=== PATIENT | female | born 1955 | race Caucasian/White ===

== ENCOUNTER 2018-04-27 15:05 | Inpatient (IN) | payer MEDICARE, MEDICAID ==
[2018-04-27 17:20] VITALS: BMI 22.8
[2018-04-27] MEDS ORDERED: Magnesium Hydroxide Susp 30 ml UD PO PRN (19:25)
[2018-04-27] MEDS ORDERED: Alum-Mag Hydrox-Simethicone Susp (30 mL) PO PRN (19:25)
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
[2018-04-28 06:58] LABS: HEMOGLOBIN 14.2 g/dL (12.0-16.0); MEAN CELL VOLUME 101.6 fl (81.0-99.0); MEAN CORPUSCULAR HEMOGLOBIN 34.3 pg (27.0-31.0); MEAN CORPUSCULAR HGB CONC 33.7 g/dL (33.0-37.0); RBC 4.15 Mil/uL (3.80-5.20); RED CELL DISTRIBUTION WIDTH 13.8 % (11.5-14.5); WHITE BLOOD COUNT 5.6 K/uL (4.8-10.8)
[2018-04-28 07:25] LABS: ALB/GLOB RATIO 1.4 (1.0-2.1); ALBUMIN 4.2 g/dL (3.5-5.0); ALT/SGPT 21 U/L (9-52); AST/SGOT 20 U/L (14-36); BLOOD UREA NITROGEN 15 mg/dl (7-17); CALCIUM 9.3 mg/dL (8.4-10.2); GFR NON-AFRICAN AMERICAN > 60; HDL CHOLESTEROL 58 MG/DL (30-70)
[2018-04-28 07:31] LABS: T4 7.48 ug/dl (5.5-11.0)
[2018-04-28 07:36] LABS: LDL CHOLESTEROL 62 mg/dL (0-129)
[2018-04-28] MEDS: Divalproex 500 mg DR(BID formulation) PO SCH ×2 (08:25→17:09)
--- NOTE | 2018-04-28 12:42 | PCM.PSYCH ---
Initial Psychiatric Evaluation - Initial Psychiatric Evaluation Chief Complaint (in patient's own words): I know the staff and other patients are against me History of Present Illness and Precipitating Events: pt is 62ys old female with previous psychiatric diagnosis of schizoaffective disorder [facility] after suicidal gesture attempting to cut her wrist using a spoon, pt presenting with paranoid delusions, reporting that the staff members and other patients in the [facility] are after her , mocking her and talking about her, she also has not heard from her brother who is her only social support for a long time , patient since then has been increasingly depressed feeling hopeless and helpless, on day of admission attempted suicide by cutting her wrist on the unit pt continues to verbalize paranoid delusions, reported feeling down, denied active thoughts of self harm on the unit denied perceptual disturbances Current Medications: Active Medications Generic Name Dose Route Start Last Admin Trade Name Freq PRN Reason Stop Dose Admin Acetaminophen 650 mg 04/27/18 19:25 Tylenol 325mg Tab PO Q4 PRN Pain, moderate (4-7) Al Hydrox/Mg Hydrox/Simethicone 30 ml 04/27/18 19:25 Maalox Plus 30 Ml PO Q4 PRN Dyspepsia Cephalexin Monohydrate 500 mg 04/27/18 22:00 04/28/18 08:25 Keflex PO 500 mg QID ANDREY Administration Protocol Divalproex Sodium 500 mg 04/28/18 09:00 04/28/18 08:25 Depnatalie Hartman(*Bid*) PO 500 mg BID ANDREY Administration Lorazepam 0.5 mg 04/27/18 19:25 Ativan PO 05/11/18 19:26 Q6 PRN Anixety/Agitation Magnesium Hydroxide 30 ml 04/27/18 19:25 Milk Of Magnesia PO HS PRN Constipation Mirtazapine 15 mg 04/28/18 22:00 Remeron PO HS ANDREY Risperidone 3 mg 04/27/18 22:00 04/28/18 08:25 Risperdal Tab PO 3 mg BID ANDREY Administration Past Psychiatric History - Past Psychiatric History Prior Psychiatric Treatment: first hospitalization at age 21 since then at least five psychiatric hospit Pertinent Medical Hx (Current Medical&Sleep Prob, Allergies): Allergies Allergy/AdvReac Type Severity Reaction Status Date / Time EGG Allergy Unknown ITCHING Verified 04/27/18 18:52 Influenza Virus Vaccines Allergy ITCHING Verified 04/27/18 18:52 Cephalexin [cephalexin] 500 mg PO QID 04/27/18 Divalproex [Depakote DR] 500 mg PO BID 04/27/18 Famotidine [Pepcid] 20 mg PO DAILY 04/27/18 Folic Acid 1 mg PO DAILY 04/27/18 Mirtazapine [Remeron] 7.5 mg PO HS 04/27/18 Multivitamins [Hexavitamin] 1 tab PO DAILY 04/27/18 Polyethylene Glycol 3350 [Glycolax] 17 gm PO BID 04/27/18 Risperidone [Risperdal] 3 mg PO BID 04/27/18 Sennosides [Senokot] 1 tab PO BID 04/27/18 Mental Status Examination - Personal Presentation Personal Presentation: Looks stated age - Affect Affect: Constricted, Depressed - Motor Activity Motor Activity: Psychomotor Retardation - Reliability in Providing Information Reliability in Providing Information: Fair - Speech Speech: Relevant - Mood Mood: Depressed, Anxious - Formal Thought Process Formal Thought Process: Paranoia - Obsessions/Compulsions Obsessions: No Compulsions: No - Cognitive Functions Orientation: Person, Place, Situation Sensorium: Alert Attention/Concentration: Attentive - Risk Risk: Suicidal, Self-mutilation, Diminished functioning - Strength & Assets Inventory Strength & Assets Inventory: Life experience - Limitations Additional comments: poor social support DSM 5 DX - DSM 5 DSM 5 Diagnosis: schizophrenia paranoid type - Recommended/Plan of Treatment Treatment Recommendations and Plan of Treatment: continue with depakote 500mg bid/ follow up on depakote level risperidone 3mg bid remeron 15mg qhs urology consult/ for cystitis /uti internal medicine consult
[2018-04-28 13:18] LABS: SQUAMOUS EPITHIAL < 1 /hpf (0-5); URINE AMORPHOUS SEDIMENT RARE /ul (<OCC); URINE BILIRUBIN NEGATIVE (NEGATIVE); URINE BLOOD MODERATE (NEGATIVE); URINE CLARITY CLOUDY (Clear); URINE COLOR YELLOW (YELLOW); URINE GLUCOSE (UA) NEG (NEGATIVE); URINE LEUKOCYTE ESTERASE LARGE Leu/uL (Negative); URINE PROTEIN NEGATIVE (NEGATIVE); URINE UROBILINOGEN 0.2-1.0 mg/dL (0.2-1.0)
[2018-04-28 13:29] LABS: URINE BACTERIA LARGE (<OCC)
--- NOTE | 2018-04-28 15:16 | CP.PCM.CON ---
History of Present Illness - History of Present Illness History of Present Illness: 62 yo female with history of schizoaffective DO admitted to [facility] because of suicidal ideation. Review of Systems - Review of Systems All systems: reviewed and no additional remarkable complaints except (aside from those mentioned above, 12 point system review were negative by me) Past Patient History - Tetanus Immunizations Tetanus Immunization: Unknown - Past Social History Smoking Status: Light Smoker < 10 Cigarettes Daily Chewing Tobacco Use: No Cigar Use: No Alcohol: None Drugs: Denies Home Situation {Lives}: Intermediate - CARDIAC Hx Cardiac Disorders: No - PULMONARY Hx Respiratory Disorders: No - NEUROLOGICAL Hx Neurological Disorder: No - HEENT Hx HEENT Problems: No - RENAL Hx Chronic Kidney Disease: No - ENDOCRINE/METABOLIC Hx Endocrine Disorders: No - HEMATOLOGICAL/ONCOLOGICAL Hx Blood Disorders: No - INTEGUMENTARY Hx Dermatological Problems: No - MUSCULOSKELETAL/RHEUMATOLOGICAL Hx Arthritis: Yes Hx Falls: Yes Hx Fractures: Yes (rt hip) - GASTROINTESTINAL Hx Constipation: Yes Hx Gastritis: Yes - GENITOURINARY/GYNECOLOGICAL Hx Urinary Tract Infection: Yes Other/Comment: pt. has an indwelling catheter for urinary retention - PSYCHIATRIC Hx Depression: Yes Hx Substance Use: No - SURGICAL HISTORY Hx Musculoskeletal Surgery: Yes - ANESTHESIA Hx Anesthesia: Yes Hx Anesthesia Reactions: No Hx Malignant Hyperthermia: No Has any member of the family had a problem w/ anesthesia?: No Meds Allergies/Adverse Reactions: Allergies Allergy/AdvReac Type Severity Reaction Status Date / Time EGG Allergy Unknown ITCHING Verified 04/27/18 18:52 Influenza Virus Vaccines Allergy ITCHING Verified 04/27/18 18:52 - Medications Medications: Current Medications Acetaminophen (Tylenol 325mg Tab) 650 mg PO Q4 PRN PRN Reason: Pain, moderate (4-7) Last Admin: 04/28/18 12:17 Dose: 650 mg Al Hydrox/Mg Hydrox/Simethicone (Maalox Plus 30 Ml) 30 ml PO Q4 PRN PRN Reason: Dyspepsia Cephalexin Monohydrate (Keflex) 500 mg PO QID [facility]; Protocol Last Admin: 04/28/18 12:17 Dose: 500 mg Divalproex Sodium (Depakote Dr(*Bid*)) 500 mg PO BID [facility] Last Admin: 04/28/18 08:25 Dose: 500 mg Famotidine (Pepcid) 20 mg PO DAILY [facility] Folic Acid (Folic Acid) 1 mg PO DAILY [facility] Lorazepam (Ativan) 0.5 mg PO Q6 PRN PRN Reason: Anixety/Agitation Stop: 05/11/18 19:26 Magnesium Hydroxide (Milk Of Magnesia) 30 ml PO HS PRN PRN Reason: Constipation Mirtazapine (Remeron) 15 mg PO HS [facility] Risperidone (Risperdal Tab) 3 mg PO BID [facility] Last Admin: 04/28/18 08:25 Dose: 3 mg Sennosides (Senokot Tab) 1 mg PO BID [facility] Physical Exam - Constitutional Appears: No Acute Distress - Head Exam Head Exam: ATRAUMATIC - Eye Exam Eye Exam: absent: Scleral icterus - ENT Exam ENT Exam: Mucous Membranes Moist - Neck Exam Neck exam: Negative for: Meningismus - Respiratory Exam Respiratory Exam: absent: Rales, Rhonchi, Wheezes, Respiratory Distress - Cardiovascular Exam Cardiovascular Exam: REGULAR RHYTHM, +S1, +S2 - GI/Abdominal Exam GI & Abdominal Exam: Soft. absent: Tenderness - Rectal Exam Rectal Exam: Deferred - Extremities Exam Extremities exam: Negative for: calf tenderness, pedal edema - Back Exam Back exam: NORMAL INSPECTION - Neurological Exam Neurological exam: Alert, Oriented x3 - Psychiatric Exam Psychiatric exam: Normal Affect - Skin Skin Exam: Dry, Intact Results - Vital Signs Recent Vital Signs: Last Vital Signs Temp 98.2 F 04/28/18 05:26 Pulse 66 04/28/18 05:26 Resp 18 04/28/18 05:26 BP 130/80 04/28/18 05:26 Pulse Ox - Labs Result Diagrams: 04/28/18 05:30 04/28/18 05:30 Labs: Laboratory Results - last 24 hr 04/28/18 04/28/18 04/28/18 05:30 05:30 05:30 WBC 5.6 RBC 4.15 Hgb 14.2 Hct 42.1 MCV 101.6 H MCH 34.3 H MCHC 33.7 RDW 13.8 Plt Count 150 Sodium 135 Potassium 4.2 Chloride 99 Carbon Dioxide 27 Anion Gap 13 BUN 15 Creatinine 0.6 L Est GFR ( Amer) > 60 Est GFR (Non-Af Amer) > 60 Random Glucose 78 Calcium 9.3 Total Bilirubin 0.3 AST 20 ALT 21 Alkaline Phosphatase 63 Total Protein 7.1 Albumin 4.2 Globulin 3.0 Albumin/Globulin Ratio 1.4 Triglycerides 67 Cholesterol 126 LDL Cholesterol Direct 62 HDL Cholesterol 58 Vitamin B12 379 Free T4 1.17 Thyroxine (T4) 7.48 TSH 3rd Generation 1.66 Urine Color Urine Clarity Urine pH Ur Specific [place] Urine Protein Urine Glucose (UA) Urine Ketones Urine Blood Urine Nitrate Urine Bilirubin Urine Urobilinogen Ur Leukocyte Esterase Urine RBC (Auto) Urine Microscopic WBC Ur Squamous Epith Cells Amorphous Sediment Urine Bacteria 04/28/18 13:06 WBC RBC Hgb Hct MCV MCH MCHC RDW Plt Count Sodium Potassium Chloride Carbon Dioxide Anion Gap BUN Creatinine Est GFR ( Amer) Est GFR (Non-Af Amer) Random Glucose Calcium Total Bilirubin AST ALT Alkaline Phosphatase Total Protein Albumin Globulin Albumin/Globulin Ratio Triglycerides Cholesterol LDL Cholesterol Direct HDL Cholesterol Vitamin B12 Free T4 Thyroxine (T4) TSH 3rd Generation Urine Color Yellow Urine Clarity Cloudy Urine pH 6.0 Ur Specific [place]rose 1.009 Urine Protein Negative Urine Glucose (UA) Neg Urine Ketones Negative Urine Blood Moderate Urine Nitrate Positive H Urine Bilirubin Negative Urine Urobilinogen 0.2-1.0 Ur Leukocyte Esterase Large Urine RBC (Auto) 7 H Urine Microscopic WBC 69 H Ur Squamous Epith Cells < 1 Amorphous Sediment Rare H Urine Bacteria Large Assessment & Plan (1) Suicidal ideation Status: Acute Comment: psyche is managing
[2018-04-28 17:14] LABS: FOLATE > 20.0 ng/mL
[2018-04-29] MEDS: Divalproex 500 mg DR(BID formulation) PO SCH ×2 (08:32→17:05)
--- NOTE | 2018-04-29 11:17 | PCM.PYCHPN ---
Psychiatric Progress Note - Psychiatric Progress Note Patient seen today, length of contact: pt evaluated discussed with team chart reviewed Patient Chief Complaint: I was able to speak with my brother yesterday Problems Identified/Issues Discussed: pt evaluated, reported feeling down due to her current living situation, stated at times feeling like she wants to give up because of her situation, discussed with patient alternative positive thoughts, pt denied side effects of medications , denied perceptual disturbances DSM 5 Symptoms Update: schizoaffective disorder depressed Medication Change: No Medical Record Reviewed: Yes Mental Status Examination - Cognitive Function Orientation: Person, Place, Situation Memory: Intact, Recent, Remote Attention: WNL Concentration: WNL Association: [facility] Fund of Knowledge: [facility] Decription of patient's judgement and insights: partial insight fair judgment - Mood Mood: Depressed, Anxious - Affect Affect: Constricted, Depressed - Speech Speech: Soft - Formal Thought Process Formal Thought Process: Paranoia - Suicidal Ideation Suicidal Ideation: Yes - Homicidal Ideation Homicidal Ideation: No Goal/Treatment Plan - Goal/Treatment Plan Need for Continued Stay: Severe depression anxiety, Discharge may exacerbated symptoms Progress Toward Problem(s) and Goals/Treatment Plan: continue with depakote 500mg bid/ follow up on depakote level risperidone 3mg bid remeron 15mg qhs internal medicine consult appreciated
[2018-04-30] MEDS: Divalproex 500 mg DR(BID formulation) PO SCH ×2 (08:33→17:23)
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
--- NOTE | 2018-04-30 12:51 | CP.PCM.PN ---
Subjective - Date & Time of Evaluation Date of Evaluation: 04/30/18 Time of Evaluation: 12:50 - Subjective Subjective: Urine cultures +pseudomonas. Sensitive to Cipro will initiate 5 day course of treatment starting today, ordered a total of 10 doses. Objective - Vital Signs/Intake and Output Vital Signs (last 24 hours): Temp Pulse Resp BP Pulse Ox 98.2 F 59 L 18 114/75 04/30/18 05:03 04/30/18 05:03 04/30/18 05:03 04/30/18 05:03 - Medications Medications: Current Medications Acetaminophen (Tylenol 325mg Tab) 650 mg PO Q4 PRN PRN Reason: Pain, moderate (4-7) Last Admin: 04/28/18 12:17 Dose: 650 mg Al Hydrox/Mg Hydrox/Simethicone (Maalox Plus 30 Ml) 30 ml PO Q4 PRN PRN Reason: Dyspepsia Ciprofloxacin (Cipro) 500 mg PO Q12 [facility]; Protocol Stop: 05/04/18 21:01 Divalproex Sodium (Depakote Dr(*Bid*)) 500 mg PO BID [facility] Last Admin: 04/30/18 08:33 Dose: 500 mg Famotidine (Pepcid) 20 mg PO DAILY [facility] Last Admin: 04/30/18 08:32 Dose: 20 mg Folic Acid (Folic Acid) 1 mg PO DAILY [facility] Last Admin: 04/30/18 08:33 Dose: 1 mg Lorazepam (Ativan) 0.5 mg PO Q6 PRN PRN Reason: Anixety/Agitation Stop: 05/11/18 19:26 Magnesium Hydroxide (Milk Of Magnesia) 30 ml PO HS PRN PRN Reason: Constipation Mirtazapine (Remeron) 15 mg PO HS [facility] Last Admin: 04/29/18 21:22 Dose: 15 mg Risperidone (Risperdal Tab) 3 mg PO BID [facility] Last Admin: 04/30/18 08:33 Dose: 3 mg Sennosides (Senokot Tab) 8.6 mg PO BID [facility] Last Admin: 04/30/18 08:34 Dose: Not Given Trazodone HCl (Desyrel) 50 mg PO HS [facility] Last Admin: 04/29/18 21:21 Dose: 50 mg - Labs Labs: 04/28/18 05:30 04/28/18 05:30
[2018-05-01] MEDS: Divalproex 500 mg DR(BID formulation) PO SCH ×2 (08:19→16:59)
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
[2018-05-02] MEDS: Divalproex 500 mg DR(BID formulation) PO SCH ×2 (08:25→16:14)
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
[2018-05-03] MEDS: Divalproex 500 mg DR(BID formulation) PO SCH ×2 (08:05→16:12)
--- NOTE | 2018-05-03 09:59 | PCM.PYCHPN ---
Psychiatric Progress Note - Psychiatric Progress Note Patient seen today, length of contact: Pt evaluated, case discussed w/ team, chart reviewed Patient Chief Complaint: Paranoia Problems Identified/Issues Discussed: Patient continues to be labile and cries spontanously. She continues to be paranoid and is now preoccupied about insects. She denies acute AH/VH/SI/HI. Medicine consult appreciated; patient switched to Cipro for treatment of UTI. Diagnostic Results: VPA 75.7 on 04/30/18 Medication Change: Yes (Increase Risperdal starting tomorrow AM) Medical Record Reviewed: Yes Consults ordered or reviewed: Medicine consult Mental Status Examination - Cognitive Function Orientation: Person, Place, Situation Concentration: Poor Association: Loose Decription of patient's judgement and insights: Poor I/J - Mood Mood: Anxious - Affect Affect: Constricted - Speech Speech: Soft - Formal Thought Process Formal Thought Process: Paranoia Psychotic Thoughts and Behaviors: +Paranoia - Suicidal Ideation Suicidal Ideation: No - Homicidal Ideation Homicidal Ideation: No Goal/Treatment Plan - Goal/Treatment Plan Need for Continued Stay: Severe depression anxiety, Discharge may exacerbated symptoms Progress Toward Problem(s) and Goals/Treatment Plan: Schizoaffective Disorder -Individual and group therapy -Medicine consulted re: treatment for UTI -Continue Depakote, VPA 75.7 on 04/30/18 -Continue Remeron -Increase Risperdal starting tomorrow AM -Disposition planning Estimated Date of D/C: 05/08/18
[2018-05-04] MEDS: Divalproex 500 mg DR(BID formulation) PO SCH ×2 (08:04→16:35)
--- NOTE | 2018-05-04 09:21 | PCM.PYCHPN ---
Psychiatric Progress Note - Psychiatric Progress Note Patient seen today, length of contact: Pt evaluated, case discussed w/ team, chart reviewed Patient Chief Complaint: Paranoia Problems Identified/Issues Discussed: Patient is less labile, less paranoid and more organized. She has improved insight and states that she understands that she can not live on her own. She denies acute AH/VH/SI/HI. Medicine consult appreciated; patient switched to Cipro for treatment of UTI; will complete treatment today. Diagnostic Results: VPA 75.7 on 04/30/18 Medication Change: Yes (Increase Risperdal) Medical Record Reviewed: Yes Consults ordered or reviewed: Medicine consult Mental Status Examination - Cognitive Function Orientation: Person, Place, Situation, Time Concentration: Poor Association: Loose Decription of patient's judgement and insights: Improving I/J - Mood Mood: Anxious - Affect Affect: Constricted - Speech Speech: Soft - Formal Thought Process Formal Thought Process: Paranoia Psychotic Thoughts and Behaviors: +Paranoia - Suicidal Ideation Suicidal Ideation: No - Homicidal Ideation Homicidal Ideation: No Goal/Treatment Plan - Goal/Treatment Plan Need for Continued Stay: Severe depression anxiety, Discharge may exacerbated symptoms Progress Toward Problem(s) and Goals/Treatment Plan: Schizoaffective Disorder -Individual and group therapy -Medicine consulted re: treatment for UTI; will complete treatment with Cipro today -Continue Depakote, VPA 75.7 on 04/30/18 -Continue Remeron -Increase Risperdal -Disposition planning Estimated Date of D/C: 05/08/18
[2018-05-05] MEDS: Divalproex 500 mg DR(BID formulation) PO SCH ×2 (08:02→16:10)
--- NOTE | 2018-05-05 13:59 | PCM.PYCHPN ---
Psychiatric Progress Note - Psychiatric Progress Note Patient seen today, length of contact: Pt evaluated, case discussed w/ team, chart reviewed Patient Chief Complaint: pt reports was coming in for depression, reports feeling less paranoid, pt seen social area, adherent with treatment Problems Identified/Issues Discussed: alteration in mood and cognition Medical Problems: per chart Diagnostic Results: per psychiatry per medicine per nursing per social work per recreational therapy DSM 5 Symptoms Update: some improvement mood and psychosis Medication Change: No Medical Record Reviewed: Yes Consults ordered or reviewed: pt seen by hospitalist Mental Status Examination - Cognitive Function Orientation: Person, Place, Situation, Time Concentration: Poor Association: Loose Decription of patient's judgement and insights: impaired - Mood Mood: Depressed - Affect Affect: Constricted - Speech Speech: Soft - Formal Thought Process Formal Thought Process: Paranoia - Homicidal Ideation Homicidal Ideation: No Goal/Treatment Plan - Goal/Treatment Plan Need for Continued Stay: Severe depression anxiety, Discharge may exacerbated symptoms Progress Toward Problem(s) and Goals/Treatment Plan: inpt milieu adjust meds per status discharge planning in progress Estimated Date of D/C: 05/08/18 - Smoking Cessation Smoking Cessation Initiated: No Reason for not providing: defers
[2018-05-06] MEDS: Divalproex 500 mg DR(BID formulation) PO SCH ×2 (08:24→16:24)
--- NOTE | 2018-05-06 19:51 | PCM.PYCHPN ---
Psychiatric Progress Note - Psychiatric Progress Note Patient seen today, length of contact: Pt evaluated, case discussed w/ team, chart reviewed Patient Chief Complaint: reports feeling better, took shower this am, feels rested denies any s/i. staff report pt rx adherent. Problems Identified/Issues Discussed: alteration in mood and cognition-improving Medical Problems: per chart Diagnostic Results: per psychiatry per medicine per nursing per social work per recreational therapy DSM 5 Symptoms Update: improving mood and cognition walking with assistance of walker Medication Change: No Medical Record Reviewed: Yes Consults ordered or reviewed: pt seen by hospitalist Mental Status Examination - Cognitive Function Orientation: Person, Place, Situation, Time Attention: WNL Concentration: WNL Association: WNL Decription of patient's judgement and insights: impaired - Mood Mood: Depressed - Affect Affect: Constricted - Speech Speech: Soft - Formal Thought Process Formal Thought Process: No Impairment - Suicidal Ideation Suicidal Ideation: No - Homicidal Ideation Homicidal Ideation: No Goal/Treatment Plan - Goal/Treatment Plan Need for Continued Stay: Severe depression anxiety, Discharge may exacerbated symptoms Progress Toward Problem(s) and Goals/Treatment Plan: inpt milieu adjust meds per status discharge planning in progress pt reports would like to return to [facility] Estimated Date of D/C: 05/08/18 - Smoking Cessation Smoking Cessation Initiated: No Reason for not providing: pt defers
[2018-05-07] MEDS: Divalproex 500 mg DR(BID formulation) PO SCH ×2 (08:06→17:48)
--- NOTE | 2018-05-07 10:53 | PCM.PYCHPN ---
Psychiatric Progress Note - Psychiatric Progress Note Patient seen today, length of contact: Pt evaluated, case discussed w/ team, chart reviewed Patient Chief Complaint: "I'm feeling better" Problems Identified/Issues Discussed: Patient has improved clinically. She denies acute depression/anxiety/AH/VH/paranoia/delusions. She is at her current baseline of functioning. She completed treatment of Cipro for UTI. Diagnostic Results: VPA 75.7 on 04/30/18 Medication Change: No Medical Record Reviewed: Yes Consults ordered or reviewed: Medicine consult Mental Status Examination - Cognitive Function Orientation: Person, Place, Situation, Time Decription of patient's judgement and insights: Improved I/J - Mood Mood: Neutral - Affect Affect: Broad - Speech Speech: Appropriate - Formal Thought Process Formal Thought Process: No Impairment Psychotic Thoughts and Behaviors: Denies AH/VH/paranoia/delusions - Suicidal Ideation Suicidal Ideation: No - Homicidal Ideation Homicidal Ideation: No Goal/Treatment Plan - Goal/Treatment Plan Progress Toward Problem(s) and Goals/Treatment Plan: Schizoaffective Disorder; patient is at her baseline of functioning and is psychiatrically stable for referral back to [facility] -Individual and group therapy -Continue Depakote, VPA 75.7 on 04/30/18; continue Remeron and Risperdal -Disposition planning Estimated Date of D/C: 05/08/18
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
[2018-05-08] MEDS: Divalproex 500 mg DR(BID formulation) PO SCH (08:49)
--- NOTE | 2018-05-08 09:31 | PCM.PYCHPN ---
Psychiatric Progress Note - Psychiatric Progress Note Patient seen today, length of contact: Pt evaluated, case discussed w/ team, chart reviewed Patient Chief Complaint: "I'm feeling better" Problems Identified/Issues Discussed: No new events. Patient has improved clinically. She denies acute depression/anxiety/AH/VH/paranoia/delusions. She is at her current baseline of functioning. She completed treatment of Cipro for UTI. Diagnostic Results: VPA 75.7 on 04/30/18 Medication Change: No Medical Record Reviewed: Yes Consults ordered or reviewed: Medicine consult Mental Status Examination - Cognitive Function Orientation: Person, Place, Situation, Time Decription of patient's judgement and insights: Improved I/J - Mood Mood: Neutral - Affect Affect: Broad - Speech Speech: Appropriate - Formal Thought Process Formal Thought Process: No Impairment Psychotic Thoughts and Behaviors: Denies AH/VH/paranoia/delusions - Suicidal Ideation Suicidal Ideation: No - Homicidal Ideation Homicidal Ideation: No Goal/Treatment Plan - Goal/Treatment Plan Progress Toward Problem(s) and Goals/Treatment Plan: Schizoaffective Disorder; patient is at her baseline of functioning and is psychiatrically stable for referral back to [facility] -Individual and group therapy -Continue Depakote, VPA 75.7 on 04/30/18; continue Remeron and Risperdal -Disposition planning Estimated Date of D/C: 05/08/18
--- NOTE | 2018-05-08 12:05 | PCM.PYCHDC ---
Mental Status Examination - Mental Status Examination Orientation: Person, Place, Situation, Time Memory: Intact Mood: Neutral Affect: Broad Speech: Appropriate Formal Thought Process: No Impairment Description of patient's judgement and insight: Improved I/J Psychotic Thoughts and Behaviors: Denies AH/VH/paranoia/delusions Suicidal Ideation: No Current Homicidal Ideation?: No Discharge Summary - Discharge Note Reason for Hospitalization: 62 yo female w/ h/o schizoaffective disorder, presents s/p suicide attempt by cutting her wrist with a spoon, depression, feeling hopeless/helpless and worsening paranoid delusions. Consultations:: List each consultation separately and include: 1. Reason for request. 2. Findings. 3. Follow-up Consultations: Medicine consult Summary of Hospital Course include:: 1. Description of specific treatment plan utilized for patients during their course of treatmen. 2. Summarize the time- course for resolution of acute symptoms and/or regressed behaviors. 3. Describe issues identified and worked on during hospitalization. 4. Describe medication utilized. 5. Describe medical problems identified and treated. 6. Reassessment of suicide risk Summary of Hospital Course: Patient was admitted to the psychiatry unit. Individual and group therapy was provided. Patient was stabilized on Depakote 500 mg PO BID, Remeron 15 mg PO HS and Risperdal 4 mg PO Q12 hr. She was treated for UTI was Cipro. Patient has improved clinically and is now psychiatrically stable for discharge. No acute depression/anxiety/AH/VH/paranoia/delusions/SI/HI. - Diagnosis (1) Schizoaffective disorder Current Visit: Yes Status: Chronic - Final Diagnosis (DSM 5) Condition upon Discharge: STABLE DSM 5: Schizoaffective Disorder Disposition: HOME/ ROUTINE Follow-up Treatment Plan: Schizoaffective Disorder; patient is at her baseline of functioning and is stable for discharge. -Individual and group therapy -Continue Depakote, VPA 75.7 on 04/30/18; continue Remeron and Risperdal -Disposition planning - Smoking Cessation Smoking Cessation Medication prescribed: No Reason for not providing: Not indicated - Antipsychotic Medications Pt discharged on 2 or more routine antipsychotic medications: No
[2018-05-08 15:19] VITALS: BP 94/44; PULSE 63; RESP 19; TEMP 97.5
== END 2018-05-08 15:45 | disposition home or self-care (01) | DRG 885 ==
LOC: H.STEP 17:21
PROVIDERS: ADMIT Psychiatry & Neurology Psychiatry; ATTEND Psychiatry & Neurology Psychiatry
PROC: GZHZZZZ Group Psychotherapy (ICD-10-PCS; principal; 2018-04-27)
DX: F25.9 Schizoaffective disorder, unspecified (principal); R45.851 Suicidal ideations; N39.0 Urinary tract infection, site not specified; Z88.7 Allergy status to serum and vaccine; Z91.012 Allergy to eggs; F17.210 Nicotine dependence, cigarettes, uncomplicated; Z91.14 Patient's other noncompliance with medication regimen; B96.5 Pseudomonas (aeruginosa) (mallei) (pseudomallei) as the cause of diseases classified elsewhere